=== PATIENT | female | born 1970 | race Caucasian/White ===

== ENCOUNTER 2018-08-10 20:33 | Emergency (ER) | payer BC, OTHER ==
[2018-08-10] MEDS ORDERED: Ciprofloxacin 0.3% Ophth Soln 5 ML Bottle OP ONE (20:34)
[2018-08-10 20:49] VITALS: BP 118/84
[2018-08-10] MEDS ORDERED: Fluorescein 1 MG Ophth Strip EYELF ONE (20:53)
[2018-08-10] MEDS ORDERED: Tetracaine HCl/PF 0.5% 4 ML Bottle EYELF ONE (20:53)
[2018-08-10] MEDS ORDERED: Ciprofloxacin 0.3% Ophth Soln 5 ML Bottle ONE (21:21)
--- NOTE | 2018-08-10 21:38 | EDM.PDOC ---
ED HPI GENERAL MEDICAL PROBLEM - General Chief Complaint: Eye Problems Stated Complaint: SOMETHING WRONG WITH EYE Time Seen by Provider: 08/10/18 21:00 - History of Present Illness INITIAL COMMENTS - FREE TEXT/NARRATIVE: c/o pain to left eye starting last naresh, started scratchy then throbbing. Took contact out and hasn't improved. Unable to open eye today. Watering. Sensitive to light. Not noted floaters, halos or curtain effects. 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) Left Eye Pain Score (Numeric/FACES): 6 - Related Data Allergies Allergy/AdvReac Type Severity Reaction Status Date / Time amoxicillin Allergy Hives Verified 11/03/16 07:25 fenofibrate [From Tricor] Allergy Hives Verified 11/03/16 07:25 lisinopril Allergy Rash Verified 11/03/16 07:25 loratadine [From Claritin] Allergy Rash Verified 11/03/16 07:25 Sulfa (Sulfonamide Allergy Anaphylactic Verified 11/03/16 07:25 Antibiotics) Shock Home Meds: Home Meds DULoxetine [Cymbalta] 60 mg PO BEDTIME 11/03/16 [History] carBAMazepine [Tegretol] 200 mg PO DAILY 11/03/16 [History] carBAMazepine [Tegretol] 400 mg PO BEDTIME 11/03/16 [History] Past Medical History HEENT History: Reports: Impaired Vision Other HEENT History: Wears glasses Genitourinary History: Reports: Urinary Incontinence Neurological History: Reports: Other (See Below) Other Neuro History: 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 ED EXAM GENERAL W FULL EYE - Physical Exam Exam: See Below Exam Limited By: No Limitations General Appearance: Alert, Mild Distress Eye Exam: Left Eye: Periorbital Changes (periorbital erythema ), Vision Changes (blured), Bilateral Eye: EOMI, PERRL (4mm) Conjunctiva & Sclera: Right: Normal Appearance, Left: Injected Cornea Exam: Left: Corneal Abrasion (small 9 oclock), Examined with Flourescein Extraocular Movements: Bilateral: Intact Pupils: Normal Accommodation Pupillary Size: Bilateral: 4 mm Pupillary Reaction: Bilateral: Brisk Anterior Chamber: Left: Normal Appearance Posterior Chamber: Left: Normal Funduscopic Ears: Normal External Exam, Hearing Grossly Normal Throat/Mouth: Normal Voice Respiratory/Chest: No Respiratory Distress Cardiovascular: Regular Rate, Rhythm Neurological: Alert, Oriented, Normal Cognition Psychiatric: Normal Affect Skin Exam: Warm, Dry, Intact Course - Vital Signs Last Recorded V/S: Last Vital Signs Temp 99.3 F 08/10/18 20:49 Pulse 88 08/10/18 20:49 Resp 14 08/10/18 20:49 BP 118/84 08/10/18 20:49 Pulse Ox 96 08/10/18 20:49 - Orders/Labs/Meds Meds: Medications Discontinued Medications Generic Name Dose Route Start Last Admin Trade Name Gilmar PRN Reason Stop Dose Admin Fluorescein Sodium 1 mg 08/10/18 20:53 08/10/18 20:57 Ful-Laxmi EYELF 08/10/18 20:54 1 mg ONETIME ONE Administration Tetracaine HCl 1 ml 08/10/18 20:53 08/10/18 20:57 Tetracaine 0.5% Steri-Unit Digna EYELF 08/10/18 20:54 2 drop ASDIRECTED ONE Administration Departure - Departure Time of Disposition: 21:30 Disposition: Home, Self-Care 01 Condition: Good Clinical Impression: Corneal abrasion Qualifiers: Encounter type: initial encounter Laterality: left Qualified Code(s): S05.02XA - Injury of conjunctiva and corneal abrasion without foreign body, left eye, initial encounter - Discharge Information *PRESCRIPTION DRUG MONITORING PROGRAM REVIEWED*: No *COPY OF PRESCRIPTION DRUG MONITORING REPORT IN PATIENT VIKTOR: No Instructions: Corneal Abrasion, [id number] Additional Instructions: Dark room dark glasses Ciprofloxacin opthalmic drops, apply 2 drops every 4 hours up to 5 days follow up in am with eye clinic cool compress elevate head of bed
== END 2018-08-10 21:31 | disposition home or self-care (01) ==
LOC: DL.ED 20:33
DX: S05.02XA Injury of conjunctiva and corneal abrasion without foreign body, left eye, initial encounter (principal); F41.9 Anxiety disorder, unspecified; F32.9 Major depressive disorder, single episode, unspecified; Z88.1 Allergy status to other antibiotic agents; Z88.8 Allergy status to other drugs, medicaments and biological substances; Z79.899 Other long term (current) drug therapy; Z88.2 Allergy status to sulfonamides; X58.XXXA Exposure to other specified factors, initial encounter
CPT/HCPCS: 99283; A9270-GY

== ENCOUNTER 2023-10-27 14:15 | Emergency (ER) | payer OTHER ==
[2023-10-27 14:36] VITALS: BP 140/98; PULSE 102
[2023-10-27] MEDS: Sodium Chloride 0.9% 1,000 ML IV ONE ×2 (14:38→15:28)
[2023-10-27] MEDS: Ondansetron 4 MG/2 ML SDV IVPUSH ONE (14:38)
[2023-10-27] MEDS: Sodium Chloride 0.9% 10 ML Syringe FLUSH PRN (14:38)
[2023-10-27] MEDS: HYDROmorphone 0.5 MG/0.5 ML Syringe IVPUSH ONE (14:41)
[2023-10-27 14:43] LABS: BASOPHILS PERCENT AUTO 0.7 % (0.0-1.0); EOSINOPHILS PERCENT AUTO 2.4 % (1.0-3.0); HEMATOCRIT 48.3 % (37.0-47.0); HEMOGLOBIN 15.8 g/dL (12.0-16.0); LYMPHOCYTES PERCENT AUTO 45.3 % (20.5-50.1); MEAN CORPUSCULAR HEMOGLOBIN 30.7 pg (27.0-34.0); MEAN CORPUSCULAR HGB CONC 32.7 g/dL (33.0-35.0); MEAN CORPUSCULAR VOLUME 93.8 fL (80-100); MONOCYTES PERCENT AUTO 6.8 % (2-8); NEUTROPHILS PERCENT AUTO 44.8 % (42.2-75.2); PLATELET COUNT,PLT 342 10^3/uL (150-450); RED BLOOD CELL COUNT 5.15 10^6/uL (4.2-5.4); WHITE BLOOD CELL COUNT,WBC 7.6 10^3/uL (5.0-10.0)
[2023-10-27 15:03] LABS: A/G RATIO 1.1; ALANINE AMINOTRANSFERASE,ALT 25 U/L (14-59); ALKALINE PHOSPHATASE 108 U/L (46-116); ANION GAP 16.2 mEq/L (7-13); ASPARTATE AMNIOTRANSFERASE,AST 23 U/L (15-37); BILIRUBIN TOTAL 0.8 mg/dL (0.2-1.0); BLOOD UREA NITROGEN,BUN 20 mg/dL (7-18); CALCIUM 9.5 mg/dL (8.5-10.1); CARBON DIOXIDE,CO2 25 mmol/L (21-32); CHLORIDE,CL 103 mmol/L (98-107); CREATININE 1.66 mg/dL (0.55-1.02); POTASSIUM,K 4.2 mmol/L (3.5-5.1); PROTEIN TOTAL,TP 7.8 g/dL (6.4-8.2); SODIUM,NA 140 mmol/L (136-145)
[2023-10-27 15:12] LABS: LACTIC ACID 2.5 mmol/L (0.4-2.0)
[2023-10-27 15:17] LABS: GLUCOSE RANDOM 171 mg/dL (70-99)
[2023-10-27 15:18] LABS: C-REACTIVE PROTEIN < 0.50 ng/dL (<=0.50); ESTIMATED GFR 37 mL/min (>=60)
[2023-10-27 16:50] LABS: APPEARANCE,URINE CLEAR (CLEAR); BILIRUBIN,URINE NEGATIVE (NEGATIVE); COLOR,URINE YELLOW (YELLOW); GLUCOSE,URINE NEGATIVE (NEGATIVE); KETONES,URINE TRACE (NEGATIVE); LEUKOCYTE ESTERASE,URINE NEGATIVE (NEGATIVE); NITRITE,URINE NEGATIVE (NEGATIVE); OCCULT BLOOD,URINE NEGATIVE (NEGATIVE); PH,URINE 5.5 (5.0-9.0); PROTEIN,URINE NEGATIVE (NEGATIVE)
[2023-10-27] MEDS: Lactulose Soln 10 GM/15 ML 30 ML UD Cup PO ONE (17:00)
[2023-10-27] MEDS: Methylnaltrexone 12 MG/0.6 ML SDV SUBCUT ONE (17:01)
== END 2023-10-27 17:15 | disposition home or self-care (01) ==
LOC: DL.ED 14:15
DX: K59.00 Constipation, unspecified (principal); Z79.899 Other long term (current) drug therapy; Z88.1 Allergy status to other antibiotic agents; Z88.2 Allergy status to sulfonamides; Z88.8 Allergy status to other drugs, medicaments and biological substances
CPT/HCPCS: 36415; 74176; 80053; 81003; 82947; 83605; 83735; 85025; 86140; 87040; 87635; 87804; 96361; 96372; 96374; 96375; 99284; A9270; J1170; J2405; J7030; J2212-GY; J3490; U0002

== ENCOUNTER 2023-10-30 15:17 | Emergency (ER) | payer OTHER ==
[2023-10-30 15:35] LABS: BASOPHILS PERCENT AUTO 0.6 % (0.0-1.0); HEMATOCRIT 45.1 % (37.0-47.0); HEMOGLOBIN 14.8 g/dL (12.0-16.0); LYMPHOCYTES PERCENT AUTO 35.1 % (20.5-50.1); MEAN CORPUSCULAR HEMOGLOBIN 30.8 pg (27.0-34.0); MEAN CORPUSCULAR HGB CONC 32.8 g/dL (33.0-35.0); MONOCYTES PERCENT AUTO 5.4 % (2-8); NEUTROPHILS PERCENT AUTO 56.9 % (42.2-75.2); PLATELET COUNT,PLT 271 10^3/uL (150-450); WHITE BLOOD CELL COUNT,WBC 6.9 10^3/uL (5.0-10.0)
[2023-10-30 15:54] LABS: A/G RATIO 1.3; ALANINE AMINOTRANSFERASE,ALT 30 U/L (14-59); ALBUMIN 4.4 g/dL (3.4-5.0); ALKALINE PHOSPHATASE 108 U/L (46-116); ANION GAP 10.4 mEq/L (7-13); ASPARTATE AMNIOTRANSFERASE,AST 23 U/L (15-37); BILIRUBIN TOTAL 0.6 mg/dL (0.2-1.0); BLOOD UREA NITROGEN,BUN 12 mg/dL (7-18); BUN/CREATININE RATIO 8.6 (No establ ref range); C-REACTIVE PROTEIN < 0.50 ng/dL (<=0.50); CALCIUM 9.6 mg/dL (8.5-10.1); CARBON DIOXIDE,CO2 31 mmol/L (21-32); CHLORIDE,CL 101 mmol/L (98-107); CREATININE 1.39 mg/dL (0.55-1.02); ESTIMATED GFR 46 mL/min (>=60); GLUCOSE RANDOM 134 mg/dL (70-99); LIPASE 38 U/L (16-77); POTASSIUM,K 4.4 mmol/L (3.5-5.1); PROTEIN TOTAL,TP 7.9 g/dL (6.4-8.2); SODIUM,NA 138 mmol/L (136-145)
[2023-10-30] MEDS: Ondansetron 4 MG/2 ML SDV IV ONE (15:54)
[2023-10-30] MEDS: Sodium Chloride 0.9% 10 ML Syringe FLUSH PRN (15:55)
[2023-10-30] MEDS: Sodium Chloride 0.9% 1,000 ML IV ONE (15:55)
[2023-10-30 15:59] LABS: LACTIC ACID 1.2 mmol/L (0.4-2.0)
[2023-10-30] MEDS: Barium Sulfate w/v 2% Oral Susp 450 ML Bottle PO ONE (17:08)
[2023-10-30 23:07] VITALS: BP 103/88; PULSE 78
== END 2023-10-30 22:00 | disposition home or self-care (01) ==
LOC: DL.ED 15:17
DX: K59.00 Constipation, unspecified (principal); R10.84 Generalized abdominal pain; Z98.84 Bariatric surgery status; Z90.5 Acquired absence of kidney; Z88.1 Allergy status to other antibiotic agents; Z88.9 Allergy status to unspecified drugs, medicaments and biological substances; Z88.8 Allergy status to other drugs, medicaments and biological substances; Z88.2 Allergy status to sulfonamides; Z79.899 Other long term (current) drug therapy
CPT/HCPCS: 36415; 74176; 74177; 80053; 83605; 83690; 85025; 86140; 96361; 96374; 99284; J2405; J7030; J3490